=== PATIENT | male | born 1940 | race Caucasian/White ===

== ENCOUNTER 2024-10-24 01:56 | Emergency (ER) | payer MEDICARE ==
[~2024-10-24] VITALS: Ht 167.6 cm; Wt 88.0 kg
[2024-10-24] MEDS ORDERED: ISOSORBIDE MONO30 MG PO (02:15)
[2024-10-24] MEDS ORDERED: ASPIRIN 81 MG CHEW PO ONE (02:15)
[2024-10-24] MEDS ORDERED: ROSUVASTATIN CAL5 MG PO (02:16)
[2024-10-24] MEDS ORDERED: AMLODIPINE-OLM1 EAC2 PO (02:16)
[2024-10-24] MEDS ORDERED: ISOSORBIDE MONO60 MG PO (02:16)
[2024-10-24] MEDS ORDERED: METOPROLOL SUCC25 MG PO (02:17)
[2024-10-24] MEDS ORDERED: ADULT ASPIRIN R81 MG PO (02:18)
[2024-10-24] MEDS ORDERED: NITROSTAT0.4 MG SL (02:18)
[2024-10-24] MEDS ORDERED: VENTOLIN HFA18 GM (02:18)
[2024-10-24 02:19] LABS: HEMATOCRIT 38.5 % (40.1-51.0); HEMOGLOBIN 13.1 g/dL (13.7-17.5); MCH 32.3 PG (25.7-32.2); MCV 94.8 fL (79.0-92.2); PLATELET COUNT 68 K/uL (163-337); RBC 4.06 M/uL (4.63-6.08)
[2024-10-24 02:38] LABS: ALBUMIN 3.9 g/dL (3.4-5.0); ALBUMIN/GLOBULIN RATIO 1.15 (1.1-2.4); BILIRUBIN, TOTAL 0.3 mg/dL (0.2-1.0); BUN/CREATININE RATIO 14.39 (6.0-28.6); CALCIUM 9.5 mg/dL (8.5-10.1); CREATININE, SERUM 1.32 mg/dL (0.70-1.30); EOSINOPHILS, MANUAL DIFF 4; LYMPHOCYTES, MANUAL DIFF 29; MONOCYTES, MANUAL DIFF 8; NEUTROPHILS, MANUAL DIFF 59; PROTEIN, TOTAL 7.3 g/dL (6.4-8.2)
[2024-10-24 04:49] VITALS: BP 173/76
--- NOTE | 2024-10-26 10:10 | EKG ---
[facility] [address] [facility] [place], [place] [address] Signed Normal sinus rhythm Normal ECG No previous ECGs available Confirmed by Alma Ye DO ([id number]) on 10/26/2024 10:10:27 AM Electronically Signed By: ALMA YE DO 10/26/24 1010 PATIENT NAME: ANGELA EGAN Electrocardiogram DATE OF : 36 PHYSICIAN: ALMA YE DO REPORT #: [id number] REPORT IS CONFIDENTIAL AND NOT TO BE RELEASED WITHOUT AUTHORIZATION
== END 2024-10-24 04:30 | disposition home or self-care (01) ==
LOC: ED 01:56
PROVIDERS: Emergency Medicine
DX: R07.9 Chest pain, unspecified (principal); Z79.899 Other long term (current) drug therapy; Z79.82 Long term (current) use of aspirin
CPT/HCPCS: 36415; 71045; 80053; 84484; 85025; 93005; 93010; 99285-25; A9270